=== PATIENT | female | born 1940 | race African-American/Black ===

== ENCOUNTER 2016-11-15 08:57 | Emergency (ER) | payer MEDICARE, OTHER ==
[~2016-11-15] VITALS: Ht 160 cm; Wt 81.5 kg
[~2016-11-15 08:57] MED LIST: AMLODIPINE BESYL5 MG PO; ANTIVERT PO; ARICEPT23 MG PO; ASPIRIN81 M1 PO; BENZONATATE; CALCIUM 600 +1 EAC3 PO; DOCUSATE SODIU100 MG PO; HCTZ PO; LIPITOR PO; LISINOPRIL PO; LISINOPRIL-HCTZ1 T18 PO; LISINOPRIL10 MG PO; LOPRESSOR PO; METFORMIN HCL500 M1 PO; METFORMIN PO; MIRALAX17 G1 PO; MULTIVITAMIN1 UDCAP PO; NAMENDA XR28 MG PO; NAPROXEN PO; NORVASC10 MG PO; SENNA PO; ZYRTEC
== END 2016-11-15 10:33 | disposition home or self-care (01) ==
LOC: CED 08:57
DX: T78.3XXA Angioneurotic edema, initial encounter (principal); E11.9 Type 2 diabetes mellitus without complications; I10 Essential (primary) hypertension
CPT/HCPCS: 99283